=== PATIENT | male | born 1945 | race Caucasian/White ===

== ENCOUNTER 2018-09-04 12:46 | Outpatient (CLI) | payer MEDICARE ==
--- NOTE | 2018-09-04 14:04 | MRI ---
MRI Lumbar Spine Noncontrast: HISTORY: Lumbar radiculopathy. Right-sided sciatic pain that extends down right leg. COMPARISON: None FINDINGS: There is mild nonspecific but symmetric bilateral perinephric stranding. Retroperitoneal structures o therwise demonstrate grossly normal nonenhanced MRI appearance. Conus medullaris is normal in morphology and terminates at the L1 level. T11-12 level: There are mild disc degenerative changes with mild disc osteophyte complex resulting in slight effacement of the ventral subarachnoid space. Neural foramina appear patent based on sagittal imaging. T12-L1 level: There is no disc bulge or disc herniation. Central spinal canal and neural foramina are patent. L1-2: There is a mild disc osteophyte complex without significant narrowing of the central spinal can al or neural foramina. L2-3: A prominent Schmorl's node is seen in the superior endplate of the L3 vertebral body. A mild di sc osteophyte complex is present with mild facet degenerative changes. There is mild generalized narrowing of the central spinal canal. There is mild right and minimal left-sided neural foraminal na rrowing. L3-4: There is a mild disc osteophyte complex present which results in slight flattening of the ventr al aspect of the thecal sac. Mild bilateral neural foraminal narrowing is present. L4-5: There is no disc bulge or disc herniation. Central spinal canal and neural foramina are patent. L5-S1: Grade 1 anterolisthesis of L5 on S1 is present which measures approximately 9 mm. There are pr obable bilateral pars defects present at this level. There is uncovering of the L5-S1 intervertebral disc without significant disc bulge present. Facet hypertrophic changes are present. T here is mild bilateral neural foraminal narrowing. The central spinal canal is patent. Mild facet degenerative changes are seen. IMPRESSION: 1. Spondylolisthesis lumbosacral junction with mild bilateral neural foraminal narrowing. 2. 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
== END 2018-09-04 12:47 | disposition home or self-care (01) ==
LOC: TBSIIMAG 12:46
PROVIDERS: ATTEND Neurological Surgery
DX: M47.26 Other spondylosis with radiculopathy, lumbar region (principal); M43.17 Spondylolisthesis, lumbosacral region; M48.07 Spinal stenosis, lumbosacral region
CPT/HCPCS: 72148